=== PATIENT | male | born 1990 | race Hispanic/Latino ===

== ENCOUNTER 2017-01-12 08:15 | Emergency (ER) | payer OTHER ==
--- NOTE | 2017-01-12 08:26 | ED PDOC ---
Arrival/HPI - General Historian: Patient - History of Present Illness Time/Duration: Prior to Arrival Symptom Course: Worsening Quality: Aching Severity Level: Severe Activities at Onset: Rest Context: Home <Millicent King - Last Filed: 01/12/17 09:23> <Waqar Gill - Last Filed: 01/12/17 14:41> - General Chief Complaint: Trauma Time Seen by Provider: 01/12/17 08:26 - History of Present Illness Narrative History of Present Illness (Text): 01/12/17 08:45 This is a 26Y M with no PMH here for fall prior to arrival. Patient was walking down the stairs and took a misstep and fell off of the side of the stairs without a railing. He reports he was about 5-6 stairs up from the ground. He fell on his L hip and did not hit his head or lose consciousness. The fall was not witnessed and he denies any seizure like activity, urine or bowel retention/ incontinence, numbness/tingling, CP or SOB. Patient reports he was able to ambulate after the fall, but the pain kept increasing so he decided to call the ambulance. (Millicent King) Past Medical History - Provider Review Nursing Documentation Reviewed: Yes - Travel History Have you recently traveled outside [place] w/in the past 3 mons?: No - Past History Past History: No Previous <MikhailRa estradaMillicent - Last Filed: 01/12/17 09:23> Family/Social History - Physician Review Nursing Documentation Reviewed: Yes Family/Social History: Diabetes <FernandoMillicent - Last Filed: 01/12/17 09:23> Allergies/Home Meds <FernandoMillicent - Last Filed: 01/12/17 09:23> <Waqar Gill - Last Filed: 01/12/17 14:41> Allergies/Adverse Reactions: Allergies No Known Allergies Allergy (Verified 01/12/17 08:29) Review of Systems - Physician Review All systems were reviewed & negative as marked: Yes - Review of Systems Constitutional: Normal Eyes: Normal Respiratory: Normal. absent: SOB Cardiovascular: Normal. absent: Chest Pain, Palpitations Gastrointestinal: Normal. absent: Stool Changes Genitourinary Male: Normal. absent: Urinary Output Changes Musculoskeletal: Back Pain. absent: Neck Pain, Joint Swelling Skin: Normal. absent: Skin Lesions, Laceration Neurological: Normal. absent: Headache, Dizziness <Millicent King - Last Filed: 01/12/17 09:23> Physical Exam Vital Signs Reviewed: Yes Temperature: Afebrile Blood Pressure: Normal Pulse: Regular Respiratory Rate: Normal Appearance: Positive for: Well-Appearing, Non-Toxic, Comfortable Pain Distress: None Mental Status: Positive for: Alert and Oriented X 3 - Systems Exam Head: Present: Atraumatic, Normocephalic Pupils: Present: PERRL Extroacular Muscles: Present: EOMI Conjunctiva: Present: Normal Mouth: Present: Moist Mucous Membranes Neck: Present: Normal Range of Motion Respiratory/Chest: Present: Clear to Auscultation, Good Air Exchange. No: Respiratory Distress, Accessory Muscle Use Cardiovascular: Present: Regular Rate and Rhythm, Normal S1, S2. No: Murmurs Abdomen: Present: Normal Bowel Sounds. No: Tenderness, Distention, Peritoneal Signs Back: Present: Normal Inspection (no bruising or lacerations noted ), Paraspinal Tenderness (to sacrum and SI joint ) Upper Extremity: Present: Normal Inspection. No: Cyanosis, Edema Lower Extremity: Present: Normal Inspection. No: Edema Neurological: Present: GCS=15, CN II-XII Intact, Speech Normal, Motor Func Grossly Intact, Normal Sensory Function Skin: Present: Warm, Dry, Normal Color. No: Rashes, Erythematous, Laceration, Abrasion Psychiatric: Present: Alert, Oriented x 3, Normal Insight, Normal Concentration <Millicent Kign - Last Filed: 01/12/17 09:23> <Waqar Gill - Last Filed: 01/12/17 14:41> Vital Signs Temp Pulse Resp BP Pulse Ox 01/12/17 08:15 97.8 F 87 18 120/60 98 Medical Decision Making Re-evaluation Time: 09:23 <Millicent King - Last Filed: 01/12/17 09:23> - RAD Interpretation Hand Sander: Radiologist <Waqar Gill - Last Filed: 01/12/17 14:41> ED Course and Treatment: 01/12/17 08:51 Impression: This is a 26Y M with no PMH here for fall on L hip prior to arrival secondary to misstep. Differential Diagnosis included but are not limited to: Muscle strain r/o fracture Plan: -- L hip XR -- Toradol -- Reassess and disposition Progress Notes: 01/12/17 09:23 X-Ray negative for fracture. On reevaluation the patient feels better and is in no acute distress. I have discussed the results and plan with the patient, who expresses understanding. Patient given the opportunity to ask question, all questions were answered and there is agreement with the plan to discharge the patient home with prescription for Motrin. Patient is stable for discharge. Patient was instructed to follow up with physician/clinic in 1-2 days or return if symptoms persist/worsen or new concerning symptoms arise. (Millicent King) 01/12/17 Patient Seen With Resident: In agreement with resident note which contains more details about the patient. Patient was seen and evaluated with resident. Came up with plan and treatment together. (Waqar Gill) - RAD Interpretation Radiology Orders: 01/12/17 08:39 Hip Left [HIP MIN 2V W/ PELVIS LT] [RAD] Stat - Medication Orders Current Medication Orders: Discontinued Medications Ketorolac Tromethamine (Toradol) 60 mg IM STAT STA Stop: 01/12/17 08:40 Last Admin: 01/12/17 08:51 Dose: 60 mg MAR Pain Assessment Document 01/12/17 08:51 AD (Rec: 01/12/17 08:52 AD [id number] Pain Reassessment Is this a pain reassessment? No Presence of Pain Presence of Pain Yes Pain Scale Used Pain Scale Used Numeric Location Left, Right or Bilateral Left Pain Location Body Site Back Hip Description Description Sharp Intensity of Pain at present 8 Pain Behavior Moaning Facial Grimacing Aggravating Factors Changing Position IM Administration Charges Document 01/12/17 08:51 AD (Rec: 01/12/17 08:52 AD [id number] Injection Site MAR Injection Site Right Gluteus Medius Charges for Administration # of IM Administrations 1 <Millicent King - Last Filed: 01/12/17 09:23> - PA / [employer]IST / Resident Statement [place] has reviewed & agrees with the documentation as recorded. [place] has examined the patient and agrees with the treatment plan. - Scribe Statement The provider has reviewed the documentation as recorded by the Scribe <Waqar Gill - Last Filed: 01/12/17 14:41> - Scribe Statement Cari Estelle Provider Scribe Attestation: All medical record entries made by the Scribe were at my direction and personally dictated by me. I have reviewed the chart and agree that the record accurately reflects my personal performance of the history, physical exam, medical decision making, and the department course for this patient. I have also personally directed, reviewed, and agree with the discharge instructions and disposition. (Waqar Gill) Disposition/Present on Arrival - Present on Arrival Any Indicators Present on Arrival: No - Disposition Have Diagnosis and Disposition been Completed?: Yes Disposition Time: 09:24 Patient Plan: Discharge <Millicent King - Last Filed: 01/12/17 09:23> <Waqar Gill - Last Filed: 01/12/17 14:41> - Disposition Diagnosis: Fall Disposition: HOME/ ROUTINE Condition: IMPROVED Print Language: MALTESE Additional Instructions: Mr. Zamora, thank you for letting us take care of you today. Your provider was Dr. King. You were treated for fall. The emergency medical care you received today was directed at your acute symptoms. If you were prescribed any medication, please fill it and take as directed. It may take several days for your symptoms to resolve. Return to the Emergency Department if your symptoms worsen, do not improve, or if you have any other problems. Please contact your doctor or call one of the physicians/clinics you have been referred to that are listed on the Patient Visit Information form that is included in your discharge packet. Bring any paperwork you were given at discharge with you along with any medications you are taking to your follow up visit. Our treatment cannot replace ongoing medical care by a primary care provider (PCP) outside of the emergency department. Thank you for allowing the [facility] team to be part of your care today. If you had an X-Ray or CT scan: A Radiologist will review the ED reading if any change in treatment is needed we will contact you. Prescriptions: Ibuprofen [Motrin] 600 mg PO Q6H PRN #20 tab PRN Reason: Pain, Moderate (4-7) Referrals: PCP,NO [Primary Care Provider] - Follow up with primary Forms: [employer] ([place])
[2017-01-12 08:29] VITALS: BMI 30.1
[2017-01-12 08:32] VITALS: BP 120/60; PULSE 87; RESP 18; TEMP 97.8; O2SAT 98
--- NOTE | 2017-01-12 10:45 | RAD ---
PROCEDURE: Left Hip X-ray Radiographs. HISTORY: fall COMPARISON: None. FINDINGS: BONES: The pelvic ring is intact. There is no acute displaced fracture or bone destruction. Bone alignment and mineralization are normal. JOINTS: Normal. SOFT TISSUES: Normal. OTHER FINDINGS: None. IMPRESSION: No acute fracture or dislocation.
== END 2017-01-12 10:45 | disposition home or self-care (01) ==
LOC: ED 08:15
DX: Z04.3 Encounter for examination and observation following other accident (principal); W10.8XXA Fall (on) (from) other stairs and steps, initial encounter; Y93.89 Activity, other specified; Y92.89 Other specified places as the place of occurrence of the external cause; Y99.8 Other external cause status
CPT/HCPCS: 73502; 96372; 99285; J1885